=== PATIENT | male | born 2000 | race Hispanic/Latino ===

== ENCOUNTER 2023-03-19 07:08 | Emergency (ER) | payer OTHER, SELFPAY ==
[2023-03-19] MEDS ORDERED: Raltegravir Potassium 400 MG TAB PO SCH (09:00)
[2023-03-19] MEDS ORDERED: Emtricitabine/Tenofovir 200-300 MG TAB PO SCH (09:00)
[2023-03-19 10:46] LABS: HIV (1/2) Antibody/Antigen Non-Reactive (NonReactive); HIV 1/2 INDEX 0.17 S/CO (<1.00)
[2023-03-19 15:45] LABS: HBSAB Concentration Less than 8.00 mIU/mL; Hep B Surf AB Non-Reactive (NonReactive); Hep C IgG Ab Non-Reactive S/CO (NonReactive); Hep C Index 0.11 S/CO (0-0.79)
== END 2023-03-19 09:10 | disposition home or self-care (01) ==
LOC: CSHERS 07:08
DX: Z20.89 Contact with and (suspected) exposure to other communicable diseases (principal)
CPT/HCPCS: 36415; 99283

== ENCOUNTER 2023-05-24 22:45 | Emergency (ER) | payer SELFPAY | END 2023-05-24 23:53 | disposition home or self-care (01) | LOC: CSHERS 22:45 | DX: T23.122A Burn of first degree of single left finger (nail) except thumb, initial encounter (principal); X04.XXXA Exposure to ignition of highly flammable material, initial encounter; Y99.0 Civilian activity done for income or pay | CPT/HCPCS: 99283 ==

== ENCOUNTER 2023-07-19 22:38 | Emergency (ER) | payer SELFPAY | END 2023-07-19 23:05 | disposition home or self-care (01) | LOC: CSHERS 22:38 | DX: R19.7 Diarrhea, unspecified (principal) | CPT/HCPCS: 99283 ==

== ENCOUNTER 2023-08-25 10:37 | Emergency (ER) | payer SELFPAY ==
[2023-08-25] MEDS ORDERED: Diphenoxylate HCl/Atropine Tablet ONE (11:07)
[2023-08-25 11:20] LABS: #Eosinphils 0.2 10x3/uL (0.0-0.5); #Monocytes 0.6 10x3/uL (0.0-1.1); #Neutrophils 4.1 10x3/uL (1.5-8.4); %Basophils 0.4 % (0.0-2.0); %Eosinophils 2.5 % (0.0-6.0); %Lymphocytes 28.7 % (18.0-47.0); %Monocytes 8.5 % (0.0-10.0); %Neutrophils 59.6 % (40.0-75.0); Hematocrit 44.2 % (38.8-50.0); Hemoglobin 15.3 g/dL (13.5-17.5); Mean Corpuscular HGB CONC 34.6 g/dL (32.0-36.0); Mean Corpuscular Hemoglobin 30.5 pg (27.0-33.0); Mean Corpuscular Volume 88.2 fl (81.2-95.1); Mean Platelet Volume 9.5 fl (7.4-10.4); Platelet Count 340 10x3/uL (150-450); RBC Distribution Width 12.5 % (11.5-14.5); Red Blood Cell (RBC) Count 5.01 10x6/uL (4.32-5.72); White Blood Cell (WBC) Count 6.9 10x3/uL (3.5-10.5)
[2023-08-25 11:35] LABS: ALT (SGPT) 216 U/L (8-55); AST (SGOT) 80 U/L (5-34); Albumin 4.5 g/dL (3.5-5.0); Alkaline Phosphatase 89 U/L (40-110); Anion Gap 10 mmol/L (10-20); BUN (Urea Nitrogen) 13 mg/dL (8.9-20.6); Bilirubin, Total 0.5 mg/dL (0.2-1.2); Calc. Creatinine Clearance 0 mL/min (70-130); Calcium 9.2 mg/dL (7.8-10.44); Carbon Dioxide 26 mmol/L (22-29); Chloride 105 mmol/L (98-107); Estimated GFR 129; Globulin 3.4 g/dL (2.4-3.5); Glucose 111 mg/dL (70-105); Lipase 26 U/L (8-78); Potassium 3.8 mmol/L (3.5-5.1); Protein, Total 7.9 g/dL (6.0-8.3); Sodium 137 mmol/L (136-145)
== END 2023-08-25 12:00 | disposition home or self-care (01) ==
LOC: CSHERS 10:37
DX: R19.7 Diarrhea, unspecified (principal); R74.01 Elevation of levels of liver transaminase levels
CPT/HCPCS: 80053; 83690; 85025; 99284

== ENCOUNTER 2024-04-29 17:34 | Emergency (ER) | payer SELFPAY ==
[2024-04-29] MEDS ORDERED: Acetaminophen 325 MG TAB ONE (18:07)
== END 2024-04-29 18:13 | disposition home or self-care (01) ==
LOC: CSHERS 17:34
DX: L60.0 Ingrowing nail (principal)
CPT/HCPCS: 99283

== ENCOUNTER 2024-05-07 03:38 | Emergency (ER) | payer SELFPAY | END 2024-05-07 03:50 | disposition home or self-care (01) | LOC: CSHERS 03:38 | DX: R19.7 Diarrhea, unspecified (principal) | CPT/HCPCS: 99283 ==

== ENCOUNTER 2024-05-12 19:55 | Emergency (ER) | payer SELFPAY | END 2024-05-12 21:51 | disposition home or self-care (01) | LOC: CSHERS 19:55 | DX: J98.8 Other specified respiratory disorders (principal); B97.89 Other viral agents as the cause of diseases classified elsewhere | CPT/HCPCS: 99283 ==

== ENCOUNTER 2024-05-16 18:04 | Emergency (ER) | payer SELFPAY | END 2024-05-16 22:37 | disposition home or self-care (01) | LOC: CSHERS 18:04 | DX: B34.9 Viral infection, unspecified (principal) | CPT/HCPCS: 99283 ==

== ENCOUNTER 2024-06-03 21:02 | Emergency (ER) | payer SELFPAY ==
[2024-06-03] MEDS ORDERED: Ondansetron ODT 4 MG TAB ONE (23:01)
[2024-06-03] MEDS ORDERED: Acetaminophen 325 MG TAB ONE (23:01)
== END 2024-06-03 23:11 | disposition home or self-care (01) ==
LOC: CSHERS 21:02
DX: J06.9 Acute upper respiratory infection, unspecified (principal)
CPT/HCPCS: 87428; 99283; Q0162

== ENCOUNTER 2024-06-07 22:49 | Emergency (ER) | payer SELFPAY ==
[2024-06-07] MEDS ORDERED: Dicyclomine 20 MG TAB ONE (23:18)
[2024-06-07] MEDS ORDERED: Ondansetron ODT 4 MG TAB ONE (23:18)
[2024-06-07] MEDS ORDERED: Acetaminophen 325 MG TAB ONE (23:18)
[2024-06-07 23:32] LABS: #Basophils 0.02 10x3/uL (0.0-0.2); #Eosinophils 0.18 10x3/uL (0.0-0.5); #Monocytes 0.38 10x3/uL (0.0-1.1); %Basophils 0.3 % (0.0-2.0); %Eosinophils 2.8 % (0.0-6.0); %Lymphocytes 27.9 % (18.0-47.0); %Monocytes 5.8 % (0.0-10.0); %Neutrophils 62.9 % (40.0-75.0); Hematocrit 46.4 % (38.8-50.0); Hemoglobin 15.2 g/dL (13.5-17.5); Mean Corpuscular HGB CONC 32.8 g/dL (32.0-36.0); Mean Corpuscular Hemoglobin 28.7 pg (27.0-33.0); Mean Corpuscular Volume 87.5 fL (81.2-95.1); Mean Platelet Volume 9.3 fL (7.4-10.4); Platelet Count 332 10x3/uL (150-450); RBC Distribution Width 12.6 % (11.5-14.5); White Blood Cell (WBC) Count 6.5 10x3/uL (3.5-10.5)
[2024-06-07 23:41] LABS: MONO NEGATIVE CONTROL ZONE White (Negative) (White); MONO POSITIVE CONTROL Pink Line (Positive) (PINK/RED); Mononucleosis NEGATIVE (NEGATIVE)
[2024-06-07 23:46] LABS: ALT (SGPT) 345 U/L (8-55); AST (SGOT) 144 U/L (5-34); Albumin 4.3 g/dL (3.5-5.0); Alkaline Phosphatase 95 U/L (40-110); Anion Gap 17 mmol/L (10-20); BUN (Urea Nitrogen) 15 mg/dL (8.9-20.6); Bilirubin, Total 0.7 mg/dL (0.2-1.2); Calc. Creatinine Clearance 0 mL/min (70-130); Calcium 9.7 mg/dL (7.8-10.44); Carbon Dioxide 19 mmol/L (22-29); Chloride 105 mmol/L (98-107); Estimated GFR 128; Globulin 3.8 g/dL (2.4-3.5); Glucose 139 mg/dL (70-105); Lipase 16 U/L (8-78); Potassium 3.8 mmol/L (3.5-5.1); Protein, Total 8.1 g/dL (6.0-8.3); Sodium 137 mmol/L (136-145)
[2024-06-08 00:10] LABS: Acetaminophen Less than 10 mcg/mL (Less than 10); Alcohol Less than 10.0 mg/dL (Less than 10); Salicylate Less than 8.0 mg/dL (Less than 8.0)
== END 2024-06-08 01:20 | disposition home or self-care (01) ==
LOC: CSHERS 22:49
DX: R19.7 Diarrhea, unspecified (principal); R74.01 Elevation of levels of liver transaminase levels
CPT/HCPCS: 36415; 80053; 80307; 83690; 85025; 86308; 87081; 87430; 99284; Q0162

== ENCOUNTER 2025-02-04 20:06 | Emergency (ER) | payer SELFPAY ==
[2025-02-04 20:30] LABS: Lavender RECEIVED; Red RECEIVED
[2025-02-04] MEDS ORDERED: Ondansetron PF 4 MG/2 ML Vial ONE (20:34)
[2025-02-04 20:49] LABS: ALT (SGPT) 393 U/L (Less than 45); AST (SGOT) 166 U/L (11-34); Albumin 4.6 g/dL (3.1-4.5); Alkaline Phosphatase 107 U/L (40-110); Anion Gap 16 mmol/L (10-20); BUN (Urea Nitrogen) 16 mg/dL (8.9-20.6); Bilirubin, Total 0.5 mg/dL (0.3-1.2); Calc. Creatinine Clearance 0 mL/min (70-130); Calcium 9.3 mg/dL (7.8-10.44); Carbon Dioxide 23 mmol/L (22-29); Chloride 105 mmol/L (98-107); Globulin 4.0 g/dL (2.4-3.5); Glucose 97 mg/dL (70-105); Lipase 26 U/L (8-78); Potassium 4.2 mmol/L (3.5-5.1); Sodium 140 mmol/L (136-145)
[2025-02-04 21:19] LABS: #Basophils 0.06 10x3/uL (0.0-0.2); #Eosinophils 0.23 10x3/uL (0.0-0.5); #Monocytes 0.76 10x3/uL (0.0-1.1); #Neutrophils 3.96 10x3/uL (1.5-8.4); %Basophils 0.8 % (0.0-2.0); %Eosinophils 2.9 % (0.0-6.0); %Lymphocytes 36.2 % (18.0-47.0); %Monocytes 9.6 % (0.0-10.0); %Neutrophils 50.2 % (40.0-75.0); Hematocrit 45.3 % (38.8-50.0); Hemoglobin 15.4 g/dL (13.5-17.5); Mean Corpuscular Hemoglobin 29.7 pg (27.0-33.0); Mean Corpuscular Volume 87.5 fL (81.2-95.1); Platelet Count 347 10x3/uL (150-450); Red Blood Cell (RBC) Count 5.18 10x6/uL (4.32-5.72); White Blood Cell (WBC) Count 7.88 10x3/uL (3.5-10.5)
== END 2025-02-04 21:30 | disposition home or self-care (01) ==
LOC: CSHERS 20:06
DX: B34.9 Viral infection, unspecified (principal)
CPT/HCPCS: 36415; 80053; 83690; 85025; 85379; 99284; J2270; J2405; Q0162